=== PATIENT | male | born 1965 | race African-American/Black ===

== ENCOUNTER 2017-05-22 06:37 | Inpatient (IN) | payer MEDICARE ==
[2017-05-22] MEDS: IPRATRPIUM/ALBUTEROL 0.5/2.5MG 3 ML NEBU. NEB ×3 (07:31→19:26)
[2017-05-22 07:58] LABS: ADD MAN DIFF? NO
[2017-05-22 08:19] LABS: ANION GAP 11 (6-14); BLOOD UREA NITROGEN 16 mg/dL (8-26); BUN/CREATININE RATIO 20 (6-20); CALCIUM 8.2 mg/dL (8.5-10.1); CARBON DIOXIDE 23 mmol/L (21-32); CHLORIDE 109 mmol/L (98-107); CREATININE 0.8 mg/dL (0.7-1.3); GFR 122.8; GLUCOSE 94 mg/dL (70-99); POTASSIUM 4.5 mmol/L (3.5-5.1); SODIUM 143 mmol/L (136-145)
[2017-05-22 08:25] LABS: ALBUMIN 2.8 g/dL (3.4-5.0); ALK PHOS 131 U/L (46-116); ALT (SGPT) 92 U/L (16-63); AST (SGOT) 44 U/L (15-37); BASO # 0.1 x10^3/uL (0.0-0.2); BASO % 1 % (0-3); EOS % 1 % (0-3); HEMATOCRIT 41.1 % (39.0-53.0); HEMOGLOBIN 13.5 g/dL (13.0-17.5); LYMPH # 2.2 x10^3/uL (1.0-4.8); LYMPH % 24 % (24-48); MEAN CORPUSCULAR HEMOGLOBIN 33 pg (25-35); MEAN CORPUSCULAR HGB CONC 33 g/dL (31-37); MEAN CORPUSCULAR VOLUME 101 fL (79-100); MONO % 8 % (0-9); NEUT % 67 % (31-73); PLATELET COUNT 261 x10^3/uL (140-400); RED BLOOD COUNT 4.07 x10^6/uL (4.30-5.70); RED CELL DISTRIBUTION WIDTH 14.6 % (11.5-14.5); TOTAL BILIRUBIN 0.7 mg/dL (0.2-1.0); TOTAL PROTEIN 5.6 g/dL (6.4-8.2); WHITE BLOOD COUNT 9.4 x10^3/uL (4.0-11.0)
[2017-05-22 08:26] LABS: TROPONINI 0.042 ng/mL (0.000-0.055)
[2017-05-22 08:30] LABS: NT-PRO BNP 7748 pg/mL (0-124)
[2017-05-22] MEDS: FUROSEMIDE 40 MG/4 ML VIAL. IVP ×3 (10:16→15:31)
[2017-05-22] MEDS ORDERED: ONDANSETRON PF 4 MG/2 ML VIAL. IV (10:45)
[2017-05-22] MEDS ORDERED: PNEUMOCOCCAL VAX SCREEN BY RX. MC (15:15)
[2017-05-22] MEDS: PNEUMOC CONJ VACC 23-VALENT 0.5 ML VIAL. VAX IM (15:47)
[2017-05-22] MEDS ORDERED: CALCIUM CARBONATE 500 MG TAB.CHEW PO (16:15)
[2017-05-22] MEDS ORDERED: IBUPROFEN 400 MG TABLET. PO (16:15)
[2017-05-22] MEDS ORDERED: diphenhydrAMINE HCL 25 MG CAPSULE PO (16:15)
[2017-05-22] MEDS: PANTOPRAZOLE 40 MG TABLET.DR. PO (16:30)
[2017-05-22] MEDS: risperiDONE 1 MG TABLET. PO ×2 (16:45→20:19)
[2017-05-22] MEDS: DOCUSATE SODIUM 100 MG CAPSULE. PO (20:19)
[2017-05-22] MEDS: LORazepam 0.5 MG TABLET PO (20:19)
[2017-05-22] MEDS ORDERED: SIMVASTATIN 20 MG TABLET PO (21:00)
[2017-05-22 23:04] LABS: BARBITURATES NEG (NEG); BENZODIAZEPINES NEG (NEG); CANNABINOIDS NEG (NEG); COCAINE NEG (NEG); ETHANOL, URINE NEG (NEG); METHADONE NEG (NEG); OPIATES NEG (NEG); PHENCYCLIDINE NEG (NEG)
[2017-05-23 06:11] LABS: CHOLESTEROL 130 mg/dL (0-200); HDLC 28 mg/dL (40-60); NON-HDL CHOLESTEROL 102 mg/dL (0-129); TRIGLYCERIDES 60 mg/dL (0-150)
[2017-05-23 06:13] LABS: CHOLESTEROL/HDL RATIO 4.6
[2017-05-23] MEDS: IPRATRPIUM/ALBUTEROL 0.5/2.5MG 3 ML NEBU. NEB ×2 (07:20→11:08)
[2017-05-23] MEDS: DOCUSATE SODIUM 100 MG CAPSULE. PO ×2 (09:38→21:00)
[2017-05-23] MEDS: PANTOPRAZOLE 40 MG TABLET.DR. PO (09:38)
[2017-05-23] MEDS: risperiDONE 1 MG TABLET. PO ×2 (09:38→21:15)
[2017-05-23] MEDS: FUROSEMIDE 40 MG/4 ML VIAL. IVP ×2 (09:39→14:29)
[2017-05-23] MEDS: LORazepam 0.5 MG TABLET PO ×2 (09:39→21:15)
[2017-05-23] MEDS: POTASSIUM CHLORIDE 20 MEQ TABLET.ER. PO (09:39)
[2017-05-23] MEDS: LISINOPRIL 5 MG TABLET. PO (14:29)
[2017-05-23] MEDS: CARVEDILOL 3.125 MG TABLET. PO (17:37)
[2017-05-23 21:09] LABS: MRSA BY PCR Negative (Negative)
[2017-05-24 04:37] LABS: ADD MAN DIFF? NO
[2017-05-24 04:56] LABS: BASO % 1 % (0-3); EOS % 3 % (0-3); HEMATOCRIT 41.2 % (39.0-53.0); HEMOGLOBIN 13.8 g/dL (13.0-17.5); LYMPH # 2.3 x10^3/uL (1.0-4.8); LYMPH % 28 % (24-48); MEAN CORPUSCULAR HEMOGLOBIN 33 pg (25-35); MEAN CORPUSCULAR HGB CONC 34 g/dL (31-37); MEAN CORPUSCULAR VOLUME 99 fL (79-100); MONO % 9 % (0-9); NEUT % 61 % (31-73); PLATELET COUNT 244 x10^3/uL (140-400); RED BLOOD COUNT 4.17 x10^6/uL (4.30-5.70); RED CELL DISTRIBUTION WIDTH 14.4 % (11.5-14.5); WHITE BLOOD COUNT 8.4 x10^3/uL (4.0-11.0)
[2017-05-24 05:03] LABS: ANION GAP 10 (6-14); BLOOD UREA NITROGEN 18 mg/dL (8-26); CARBON DIOXIDE 27 mmol/L (21-32); CHLORIDE 103 mmol/L (98-107); GFR 94.9; GLUCOSE 94 mg/dL (70-99); MAGNESIUM 1.8 mg/dL (1.8-2.4); POTASSIUM 3.6 mmol/L (3.5-5.1); SODIUM 140 mmol/L (136-145)
[2017-05-24] MEDS: KETOCONAZOLE 2% SHAMPOO 120ML BOTTLE. TP (09:00)
[2017-05-24] MEDS: FUROSEMIDE 40 MG/4 ML VIAL. IVP ×2 (09:01→13:39)
[2017-05-24] MEDS: ASPIRIN ENTERIC COATED 81 MG TABLET.DR. PO (09:01)
[2017-05-24] MEDS: POTASSIUM CHLORIDE 20 MEQ TABLET.ER. PO (09:01)
[2017-05-24] MEDS: DOCUSATE SODIUM 100 MG CAPSULE. PO (09:01)
[2017-05-24] MEDS: LORazepam 0.5 MG TABLET PO (09:01)
[2017-05-24] MEDS: PANTOPRAZOLE 40 MG TABLET.DR. PO (09:01)
[2017-05-24] MEDS: risperiDONE 1 MG TABLET. PO (09:01)
[2017-05-24] MEDS: CARVEDILOL 3.125 MG TABLET. PO (09:02)
[2017-05-24] MEDS: LISINOPRIL 5 MG TABLET. PO (09:02)
[2017-05-24 10:16] LABS: ALBUMIN 2.5 g/dL (3.4-5.0); ALK PHOS 114 U/L (46-116); ALT (SGPT) 86 U/L (16-63); AST (SGOT) 32 U/L (15-37); DIRECT BILIRUBIN 0.1 mg/dL (0.0-0.2); TOTAL BILIRUBIN 0.5 mg/dL (0.2-1.0); TOTAL PROTEIN 5.4 g/dL (6.4-8.2)
== END 2017-05-24 15:20 | DRG 291 ==
LOC: ER 06:37 → 2 NORTH 09:40
DX: I11.0 Hypertensive heart disease with heart failure (principal); J96.20 Acute and chronic respiratory failure, unspecified whether with hypoxia or hypercapnia; I42.9 Cardiomyopathy, unspecified; F20.9 Schizophrenia, unspecified; I50.43 Acute on chronic combined systolic (congestive) and diastolic (congestive) heart failure; E78.5 Hyperlipidemia, unspecified; F17.210 Nicotine dependence, cigarettes, uncomplicated; K21.9 Gastro-esophageal reflux disease without esophagitis; Z83.3 Family history of diabetes mellitus; F10.20 Alcohol dependence, uncomplicated; F14.10 Cocaine abuse, uncomplicated; F32.9 Major depressive disorder, single episode, unspecified; F41.9 Anxiety disorder, unspecified; M19.90 Unspecified osteoarthritis, unspecified site; F19.10 Other psychoactive substance abuse, uncomplicated
CPT/HCPCS: 36415; 71010; 80048; 80053; 80061; 80076; 80307; 83735; 83880; 84484; 85025; 87641; 90732; 93005; 93306; 94640; 94760; 96374; 99285; 99285-25; 99406; J1940; J7620